=== PATIENT | male | born 1980 | race American Indian/Alaskan Native ===

== ENCOUNTER 2016-05-30 15:24 | Emergency (ER) | payer SELFPAY ==
[2016-05-30 16:13] VITALS: BP 130/87
--- NOTE | 2016-05-30 17:10 | Emergency Department Report ---
- General Chief complaint: Skin/Abscess/Foreign Body Stated complaint: BUMP RT SIDE JAW Time Seen by Provider: 05/30/16 17:03 Source: patient, family Mode of arrival: Ambulatory Limitations: No Limitations - History of Present Illness Initial comments: Patient here reports possible abscess to right lower jaw area 3 weeks. He said he was seen at [facility] approximately 2 weeks ago and had incision and drainage. He reports that area under his chin is extending to his right lower jaw area. Reports pain to right lower jaw at 9 out of 10 denies any toothache. Denies any nausea or vomiting. Denies any fever. She reports that he was prescribed antibiotic and he took antibiotic. complaint: abscess/boil Onset/Timin -: week(s) Tetanus Up to Date: yes Location: face Severity: severe Severity scale (0 -10): 9 Quality: constant, other (sore) Consistency: constant (worse with opening and closing mouth) Improves with: medication Worsens with: movement Context: other (recently treated 2 weeks ago for abscess to chin area and now getting worst) Associated symptoms: denies other symptoms Treatments Prior to Arrival: none - Related Data Home Medications Medication Instructions Recorded Confirmed Last Taken No Known Home Medications [No 05/30/16 05/30/16 Unknown Reported Home Medications] Allergies Allergy/AdvReac Type Severity Reaction Status Date / Time No Known Allergies Allergy Unverified 05/30/16 16:10 Abscess Boil HPI - HPI Chief Complaint: Skin/Abscess/Foreign Body Stated Complaint: BUMP RT SIDE JAW Time Seen by Provider: 05/30/16 17:03 Home Medications: Home Medications Medication Instructions Recorded Confirmed Last Taken No Known Home Medications [No 05/30/16 05/30/16 Unknown Reported Home Medications] Allergies/Adverse Reactions: Allergies Allergy/AdvReac Type Severity Reaction Status Date / Time No Known Allergies Allergy Unverified 05/30/16 16:10 ED Review of Systems ROS: Stated complaint: BUMP RT SIDE JAW Other details as noted in HPI Comment: All other systems reviewed and negative Constitutional: denies: chills, fever, weakness ENT: other (pain to right lower jaw). denies: ear pain, throat pain, congestion Respiratory: no symptoms reported Cardiovascular: denies: chest pain, palpitations, edema, syncope Gastrointestinal: denies: nausea, vomiting Musculoskeletal: denies: back pain, arthralgia Skin: other (boil). denies: rash Neurological: denies: headache, weakness, numbness, paresthesias, confusion, abnormal gait, vertigo ED Past Medical Hx - Past Medical History Previous Medical History?: No - Surgical History Past Surgical History?: No - Family History Family history: hypertension - Social History Smoking Status: Current Every Day Smoker Substance Use Type: Alcohol, Marijuana - Medications Home Medications: Home Medications Medication Instructions Recorded Confirmed Last Taken Type No Known Home Medications [No 05/30/16 05/30/16 Unknown History Reported Home Medications] ED Physical Exam - General Limitations: No Limitations General appearance: alert, in no apparent distress - Head Head exam: Present: atraumatic, normocephalic, normal inspection - Eye Eye exam: Present: normal appearance, PERRL, EOMI. Absent: periorbital swelling , periorbital tenderness Pupils: Present: normal accommodation - ENT ENT exam: Present: normal orophraynx, mucous membranes moist, TM's normal bilaterally, normal external ear exam. Absent: normal exam - Expanded ENT Exam Expanded Ear exam: Present: normal external inspection Mouth exam: Present: tongue normal. Absent: drooling, trismus, muffled voice, tongue elevation, laceration Teeth exam: Present: dental caries, dental tenderness # (right third mandibular molar), gingival enlargement, other (right lower oral mucosa positive swelling and induration. Tender to palpate.) Throat exam: Positive: normal inspection, other (noted submental and right lower jaw abscess. Tender to palpate with induration and no fluctuance. No erythema noted.). Negative: tonsillar erythema, tonsillomegaly, tonsillar exudate, R peritonsillar mass, L peritonsillar mass - Neck Neck exam: Present: normal inspection, full ROM. Absent: tenderness, meningismus, lymphadenopathy - Expanded Neck Exam Expanded Neck exam: Present: other (swelling noted to the submental and lower right mandible area). Absent: tenderness, midline deformity, anterior neck swelling, tracheal deviation - Respiratory Respiratory exam: Present: normal lung sounds bilaterally. Absent: respiratory distress, chest wall tenderness - Cardiovascular Cardiovascular Exam: Present: normal rhythm, bradycardia, normal heart sounds - Extremities Exam Extremities exam: Present: normal inspection, full ROM, normal capillary refill. Absent: tenderness, pedal edema, joint swelling, calf tenderness - Neurological Exam Neurological exam: Present: alert, oriented X3, normal gait, reflexes normal. Absent: motor sensory deficit - Psychiatric Psychiatric exam: Present: normal affect, normal mood - Skin Skin exam: Present: other (abscess right lower jaw and submental area) - Expanded Skin Exam Expanded Type of lesion: Present: abscess Distribution of rash: face Description of rash: Present: tenderness, swelling, indurated. Absent: erythematous, discharge, fluctuant ED Course Vital Signs 05/30/16 16:10 Temperature 97.9 F Pulse Rate 52 L Respiratory 18 Rate Blood Pressure 130/87 O2 Sat by Pulse 100 Oximetry - Reevaluation(s) Reevaluation #1: 05/30/16 19:31 Patient started on IV fluid 1 L, Zosyn IV, morphine IV and Zofran IV. White count within normal limits and lactic acid 1.1 but normal limits. Awaiting CT scan of the neck with IV contrast. Reevaluation #2: 05/30/16 20:12 Patient remained stable. Upon evaluation , pain is controlled. I Discussed CT scan and lab result with patient and family. Reevaluation #3: 05/30/16 20:57 Dr. Siddiqui evaluated patient. Reevaluation #4: 05/30/16 21:[address] Ulloa hospitalists who will take over care of patient for inpatient admission. ED Medical Decision Making - Lab Data Result diagrams: 05/30/16 18:13 05/30/16 18:13 Lab Results 05/30/16 05/30/16 05/30/16 Range/Units 18:13 18:13 18:13 WBC 7.4 (4.5-11.0) K/mm3 RBC 5.56 H (3.65-5.03) M/mm3 Hgb 17.3 H (11.8-15.2) gm/dl Hct 52.0 H (35.5-45.6) % MCV 94 (84-94) fl MCH 31 (28-32) pg MCHC 33 (32-34) % RDW 14.7 (13.2-15.2) % Plt Count 146 (140-440) K/mm3 Seg Neutrophils % [facility] Sodium 142 (137-145) mmol/L Potassium 4.5 (3.6-5.0) mmol/L Chloride 105.2 (98-107) mmol/L Carbon Dioxide 25 (22-30) mmol/L Anion Gap 16 mmol/L BUN 15 (9-20) mg/dL Creatinine 0.8 (0.8-1.5) mg/dL Estimated GFR > 60 ml/min BUN/Creatinine Ratio 18.75 % Glucose 81 (75-100) mg/dL Lactic Acid 1.1 (0.7-2.0) mmol/L Calcium 8.6 (8.4-10.2) mg/dL - Radiology Data Radiology results: report reviewed CT scan of the neck with IV contrast looking at submental and right lower jaw area revealed dental disease with caries involving the right first and second maxillary molar. There is periapical lucency at the right third mandibular molar suspicious for periapical abscess. No periodontal abscess identified. No evidence of pharyngeal tonsillar enlargement. No evidence of enlargement of adenoids. No pathological enlarged lymph nodes. Majors salivary glands are within normal limits. - Medical Decision Making Case was discussed with Dr. Thomas ED course: Patient here complaining of right lower jaw abscess that is worsening after given treatment 2 weeks ago at another facility. I discussed lab results and CT scan result with patient. Decision was made for patient to be admitted to hospital for antibiotic therapy. Patient and family voiced understanding of decision. Lab results reviewed and white count normal. Lactic acid is 1.1 which is normal. Chemistry within normal limits. Patient to be admitted to hospitalist service. Patient received 1 L of normal saline , Zosyn 3.375 g, morphine 4 mg IV and Zofran 4 mg IV in emergency room. is currently stable and pain-free. Patient started on Unasyn and IV fluid [address] Ulloa will take over care of the patient for in house treatment. Critical care attestation.: If time is entered above; I have spent that time in minutes in the direct care of this critically ill patient, excluding procedure time. ED Disposition Clinical Impression: Periapical abscess, Gingivitis, Dental caries Disposition: OP ADMITTED IP TO THIS HOSP Is pt being admited?: Yes Does the pt Need Aspirin: No Condition: Stable
[2016-05-30] MEDS ORDERED: NACL 0.9% 1000 ML 1,000 ML IV ONE ×2 (17:13→20:57)
[2016-05-30] MEDS ORDERED: ZOFRAN IV ONE (17:13)
[2016-05-30] MEDS ORDERED: MORPHINE IV ONE (17:13)
[2016-05-30] MEDS ORDERED: ZOSYN/NS 3.375GM/50ML 3.375 GM/50 ML BAG IV ONE (17:15)
[2016-05-30] MEDS ORDERED: ZOSYN/NS 3.375GM/50ML 50 ML IV SCH (18:00)
[2016-05-30] MEDS ORDERED: NACL ONE (18:27)
[2016-05-30 18:30] LABS: Hemoglobin 17.3 gm/dl (11.8-15.2); Mean Corpuscular HGB Conc 33 % (32-34); Mean Corpuscular Hemoglobin 31 pg (28-32); Mean Corpuscular Volume 94 fl (84-94); Platelet Count 146 K/mm3 (140-440); Red Blood Count 5.56 M/mm3 (3.65-5.03); Red Cell Distribution Width 14.7 % (13.2-15.2); White Blood Count 7.4 K/mm3 (4.5-11.0)
[2016-05-30 18:44] LABS: Anion Gap 16 mmol/L; BUN/Creatinine Ratio 18.75; Blood Urea Nitrogen 15 mg/dL (9-20); Calcium 8.6 mg/dL (8.4-10.2); Carbon Dioxide 25 mmol/L (22-30); Chloride 105.2 mmol/L (98-107); Glucose 81 mg/dL (75-100); Potassium 4.5 mmol/L (3.6-5.0); Sodium 142 mmol/L (137-145)
--- NOTE | 2016-05-30 19:43 | Cat Scan Report ---
FINAL REPORT EXAM: CT NECK W CON HISTORY: submental and rt lower jaw abscess TECHNIQUE: CT neck with IV contrast PRIORS: None. FINDINGS: Dental caries are seen involving the right 1st and 2nd maxillary molars. Periapical lucency is seen at the right 3rd mandibular molar. No periodontal abscess identified. No acute adjacent inflammatory soft tissue changes are observed. No evidence of for pharyngeal tonsillar enlargement no evidence of enlargement of the adenoids. No pathologically enlarged lymph nodes are identified in the neck The major salivary glands are within normal limits No abnormal mass or cyst is seen. The cervical spine is within normal limits. No evidence of significant anterior osteophyte. Proximal esophagus does not appear dilated. No focal inflammatory change seen. Major vascular structures are unremarkable. Thyroid is not enlarged. IMPRESSION: Dental disease as noted above. There is periapical lucency at the right 3rd mandibular molar suspicious for periapical abscess. No periodontal abscess identified
[2016-05-30 20:15] LABS: Blastocytes % (Manual) 0 %
[2016-05-30 20:18] LABS: Target Cells Few; Tear Drop Cells 1+
[2016-05-30 20:19] LABS: Diff Status Complete; Giant Platelets Few; Large Platelets Few; Platelet Estimate Consistent w Auto; Poikilocytosis Few
--- NOTE | 2016-05-30 23:27 | Consultation ---
History of Present Illness - Reason for Consult Consult date: 05/30/16 - History of Present Illness This is a 36 y/o male with abscess to right lower jaw area 3 weeks. He said that he was seen at [facility] approximately 2 weeks ago for abscess on the chin area and had incision and drainage. He reports that area under his chin is extending to his right lower jaw area now. Reports pain to right lower jaw at 9 out of 10 denies any toothache. Denies any nausea or vomiting. Denies any fever. He reports that he was prescribed antibiotic and he completed the antibiotic course. CT scan of the neck with IV contrast looking at submental and right lower jaw area revealed dental disease with caries involving the right first and second maxillary molar. There is periapical lucency at the right third mandibular molar suspicious for periapical abscess. No periodontal abscess identified. No evidence of pharyngeal tonsillar enlargement. No evidence of enlargement of adenoids. No pathological enlarged lymph nodes. Majors salivary glands are within normal limits. Patient was told that we donot have ENT coverage and he wanted to follow up at [facility]. Past medical History: none Past surgical History: s/p I and D at [facility]. Social History: Lives with family, denies any smoking, drinking and elicit drug abuse. Family History: Patient mother at early age and he never meet his father, His brother is healthy. Review of System: Constitutional: no fever, no chills, no weight loss Ears, eyes, nose, mouth and throat: no nasal congestion, no nasal discharge, no sinus pressure, no vision change, no red eye. Right jaw swelling and pain near the mandibular area. Neck: No neck pain or rigidity. Cardiovascular: No chest pain, no orthopnea, no palpitations, no leg swelling Respiratory: No shortness of breath, no cough, no congestion, no wheezing Gastrointestinal: no abdominal pain, no nausea, no vomiting Genitourinary : no dysuria, no hematuria Musculoskeletal: no joint swelling or muscle ache Integumentary: no rash, no pruritis Neurological: no parathesias, no numbness, no tingling Endocrine: no cold or heat intolerance, no polyuria or polydipsia Hematologic/Lymphatic: no easy bruising, no easy bleeding, no gland swelling Allergic/Immunologic: no urticaria, no angioedema. Medications and Allergies Allergies Allergy/AdvReac Type Severity Reaction Status Date / Time No Known Allergies Allergy Unverified 05/30/16 16:10 Home Medications Medication Instructions Recorded Confirmed Last Taken Type Amoxicillin/K Clav Tab [Augmentin 1 tab PO Q12HR #20 tab 05/30/16 Unknown Rx 875 mg] traMADol [Ultram 50 MG tab] 50 mg PO Q6HR PRN #20 tablet 05/30/16 Unknown Rx Active Meds: Active Medications Ampicillin Sodium/Sulbactam Sodium (Unasyn/Ns 3 Gm/100 Ml) 3 gm in 100 mls @ 100 mls/hr IV Q6HR NELSON PRN Reason: Protocol Sodium Chloride (Nacl 0.9% 1000 Ml) 1,000 mls @ 125 mls/hr IV ONCE ONE Stop: 05/31/16 04:56 Exam - Physical Exam Narrative exam: GENERAL: This is well-developed well-nourished -[place] male lying on bed appeared to be in no discomfort. HEENT: Normocephalic. Atraumatic. Extraocular motions are intact. No conjunctival congestion or icterus. Patient has moist mucous membranes. External auditory canal and nares patent bilaterally. NECK: Supple. Trachea midline. No JVD, thyromagaly or lymphadenopathy. right jaw induration with swelling and tenderness on the mandibular region. CHEST/LUNGS: Clear to auscultated bilaterally. There is no respiratory distress noted, breathing nonlabored. No wheezes crackles or rhonchi. HEART/CARDIOVASCULAR: Regular in rate and rhythm. PMI at the apex. There is no gallop rub or murmur. ABDOMEN: Abdomen is soft, nontender. Patient has normal bowel sounds. There is no abdominal distention. No organomagaly or rigidity. SKIN: There is no rash, no erythrema. There is no diaphoresis. Warm and dry. NEUROLOGY: The patient is awake, alert, and oriented. The patient is cooperative. The patient has normal speech. No focal motor deficit. MUSCULOSKELETAL: No joint effusion or tenderness. Muscle strength equal bilaterally. No muscle wasting. EXTRIMITY: No edema, cyanosis or clubbing. PSYCH: No depression or anxiety noted. Cooperative. - Constitutional Vitals: Temp Pulse Resp BP Pulse Ox 97.9 F 52 L 18 130/87 100 05/30/16 16:10 05/30/16 16:10 05/30/16 16:10 05/30/16 16:10 05/30/16 16:10 Results - Labs CBC & Chem 7: 05/30/16 18:13 05/30/16 18:13 Labs: Abnormal lab results 05/30/16 Range/Units 18:13 RBC 5.56 H (3.65-5.03) M/mm3 Hgb 17.3 H (11.8-15.2) gm/dl Hct 52.0 H (35.5-45.6) % Seg Neuts % (Manual) 26.0 L (40.0-70.0) % Lymphocytes % (Manual) 59.0 H (13.4-35.0) % Basophils % (Manual) 2.0 H (0.0-1.8) % Assessment and Plan Right mandibular jaw swallowing with possible periapical abscess Plan: Patient will follow up at [facility] as we do not have ENT coverage. He was explained that the periapical abscess that he have right now may or may not improve with antibiotics only. He might need drainage for which this hospital does not have the ENT coverage. He understand and willingly wants to follow-up at [facility]. Patient on presentation did not have any white count elevation or any fever. He does have possible localized abscess without any sign of sepsis. I discussed the finding with Dr. Schaefer ER physician who evaluated the patient with ER PA and he also agrees with the plan. He was prescribed antibiotics and pain meds on discharge.
[2016-05-30] MEDS ORDERED: AUGMENTIN 875 MG PO ONE (23:46)
[2016-05-31] MEDS ORDERED: UNASYN/NS 3 GM/100 ML 3 GM/100 ML BAG IV SCH
== END 2016-05-31 00:30 | disposition left against medical advice (07) ==
LOC: ED 15:24
DX: K04.7 Periapical abscess without sinus (principal); K05.10 Chronic gingivitis, plaque induced; K02.9 Dental caries, unspecified; F17.200 Nicotine dependence, unspecified, uncomplicated; F12.90 Cannabis use, unspecified, uncomplicated
CPT/HCPCS: 36415; 70491; 80048; 82140; 85007; 85025; 96365; 96375; 99284; J2270; J2405; J2543; J7030; Q9966